=== PATIENT | male | born 1940 | race Caucasian/White ===

== ENCOUNTER 2023-03-28 09:15 | Outpatient (CLI) | payer MEDICARE, OTHER ==
[2023-03-28 12:10] LABS: BASOPHILS % (AUTO) 0.4 %; EOSINOPHILS % (AUTO) 0.7 %; HCT - HEMATOCRIT 43.1 % (42.0-52.0); HGB - HEMOGLOBIN 14.1 g/dL (14.0-18.0); LYMPHOCYTES # (AUTO) 0.8 10^3/uL (1.5-3.5); LYMPHOCYTES % (AUTO) 14.5 %; MEAN CORPUSCULAR HEMOGLOBIN 30.9 pg (27.0-31.0); MEAN CORPUSCULAR HGB CONC 32.7 g/dL (32.0-36.0); MEAN CORPUSCULAR VOLUME 94.3 fL (80.0-94.0); MEAN PLATELET VOLUME 12.5 fL (7.4-11.4); MONOCYTES # (AUTO) 0.5 10^3/uL (0.0-1.0); MONOCYTES % (AUTO) 9.9 %; NEUTROPHILS # (AUTO) 4.1 10^3/uL (1.5-6.6); NEUTROPHILS % (AUTO) 74.3 %; PLT - PLATELET COUNT 174 10^3/uL (130-450); RED BLOOD COUNT 4.57 10^6/uL (4.70-6.10); RED CELL DISTRIBUTION WIDTH 13.2 % (12.0-15.0); WHITE BLOOD COUNT 5.5 x10^3/uL (4.8-10.8)
[2023-03-28 12:27] LABS: ALBUMIN 4.6 g/dL (3.2-5.5); ALBUMIN/GLOBULIN RATIO 1.8 (1.0-2.2); BILIRUBIN,TOTAL 0.8 mg/dL (0.2-1.0); CALCIUM 9.2 mg/dL (8.5-10.3); CREATININE 0.9 mg/dL (0.6-1.2); POTASSIUM 3.7 mmol/L (3.5-5.0); TOTAL PROTEIN 7.2 g/dL (6.7-8.2)
== END 2023-03-28 09:30 | disposition home or self-care (01) ==
LOC: LAB.N 09:15
PROVIDERS: ATTEND Nurse Practitioner
DX: R10.9 Unspecified abdominal pain (principal); R60.0 Localized edema
CPT/HCPCS: 36415; 80053; 82150; 83690; 85025; 85379

== ENCOUNTER 2023-03-30 12:17 | Emergency (ER) | payer MEDICARE, OTHER ==
[2023-03-30 12:52] LABS: BASOPHILS % (AUTO) 0.4 %; EOSINOPHILS % (AUTO) 0.3 %; HCT - HEMATOCRIT 40.7 % (42.0-52.0); HGB - HEMOGLOBIN 13.4 g/dL (14.0-18.0); LYMPHOCYTES # (AUTO) 0.9 10^3/uL (1.5-3.5); LYMPHOCYTES % (AUTO) 12.8 %; MEAN CORPUSCULAR HEMOGLOBIN 31.2 pg (27.0-31.0); MEAN CORPUSCULAR HGB CONC 32.9 g/dL (32.0-36.0); MEAN CORPUSCULAR VOLUME 94.7 fL (80.0-94.0); MEAN PLATELET VOLUME 12.2 fL (7.4-11.4); MONOCYTES # (AUTO) 0.6 10^3/uL (0.0-1.0); MONOCYTES % (AUTO) 8.7 %; NEUTROPHILS # (AUTO) 5.3 10^3/uL (1.5-6.6); NEUTROPHILS % (AUTO) 77.5 %; PLT - PLATELET COUNT 163 10^3/uL (130-450); RED CELL DISTRIBUTION WIDTH 13.5 % (12.0-15.0); WHITE BLOOD COUNT 6.8 x10^3/uL (4.8-10.8)
--- NOTE | 2023-03-30 12:57 | ED Physician Documentation ---
History of Present Illness - Stated complaint Stated Complaint: ABD/LEG PX - Chief complaint Chief Complaint: Abd Pain - History obtained from History obtained from: Patient, Family - Additonal information Additional information: The patient comes to the emergency department with chief complaint of left lower quadrant pain has been going on for the last nearly 1 week. He states that it started out as left lower quadrant pain and left flank pain that radiated down his left leg, but now, just seems to be a burning sensation in his left pelvis. He states it comes in waves and although it dies down, it does not completely go away. The patient has been on Cipro and Flagyl for the last 3 days after being seen in urgent care clinic and been started on treatment presumptively for diverticulitis without imaging, but states that the antibiotics do not seem to take the pain down. He does note that he was feeling generally somewhat ill when he went to the urgent care clinic and that he just felt "weak and limp the". However, he states that part has gotten a lot better and he feels much stronger and mentally clearer since being on antibiotics. The patient states he has a history of multiple episodes of diverticulitis in the past. He has had a CT about 5 years ago for this but has been treated twice this year from the urgent care clinic prior to this episode and both times, they have just given him antibiotics without imaging. He is not known to have any history of anything else, such as kidney stones. The patient denies fevers, chills, nausea, vomiting, or scrotal/testicular pain. He states when he washed this morning, both sides of his Scrotum appeared mildly reddish, but was not tender, and his testicles did not feel enlarged. PD PAST MEDICAL HISTORY - Present Medications Home Medications: Ambulatory Orders Medication Instructions Recorded Confirmed Ciprofloxacin HCl 500 mg PO BID 03/30/23 03/30/23 Lovastatin 20 mg PO DAILY 03/30/23 03/30/23 metroNIDAZOLE [Flagyl] 500 mg PO BID 03/30/23 03/30/23 - Allergies Allergies/Adverse Reactions: Allergies Allergy/AdvReac Type Severity Reaction Status Date / Time No Known Drug Allergies Allergy Verified 03/30/23 12:29 PD ED PE NORMAL - Vitals Vital signs reviewed: Yes - General General: Alert and oriented X 3, No acute distress, Well developed/nourished - HEENT HEENT: Atraumatic, PERRL, EOMI, Moist mucous membranes - Neck Neck: Supple, no meningeal sign - Cardiac Cardiac: RRR, No murmur - Respiratory Respiratory: No respiratory distress, Clear bilaterally - Abdomen Abdomen: Soft, Non distended, Other (Minimal tenderness, left lower quadrant, inferolaterally.) - Derm Derm: Normal color, Warm and dry, No rash - Extremities Extremities: No deformity, No edema - Neuro Neuro: Alert and oriented X 3 - Psych Psych: Normal mood, Normal affect Results - Vitals Vitals: Oxygen O2 Source Room air - Labs Labs: Laboratory Tests 03/30/23 03/30/23 03/30/23 12:40 12:40 12:55 WBC 6.8 RBC 4.30 L Hgb 13.4 L Hct 40.7 L MCV 94.7 H MCH 31.2 H MCHC 32.9 RDW 13.5 Plt Count 163 MPV 12.2 H Neut # (Auto) 5.3 Lymph # (Auto) 0.9 L Pierce # (Auto) 0.6 Eos # (Auto) 0.0 Baso # (Auto) 0.0 Absolute Nucleated RBC 0.00 Nucleated RBC % 0.0 Sodium 139 Potassium 4.1 Chloride 99 L Carbon Dioxide 26 Anion Gap 14.0 H BUN 9 Creatinine 0.9 Estimated GFR (MDRD) 81 L Glucose 120 H Calcium 9.1 Total Bilirubin 0.5 AST 47 H ALT 30 Alkaline Phosphatase 85 Total Protein 6.8 Albumin 4.3 Globulin 2.5 Albumin/Globulin Ratio 1.7 Lipase 32 Urine Color LT. YELLOW Urine Clarity CLEAR Urine pH 6.5 Ur Specific Fleming <=1.005 Urine Protein NEGATIVE Urine Glucose (UA) NEGATIVE Urine Ketones NEGATIVE Urine Occult Blood TRACE-INTA Urine Nitrite NEGATIVE Urine Bilirubin NEGATIVE Urine Urobilinogen 0.2 (NORMAL) Ur Leukocyte Esterase NEGATIVE Ur Microscopic Review NOT INDICATED Urine Culture Comments NOT INDICATED - Rads (name of study) CT abdomen and pelvis Relevant Findings:: Final report received, See rad report (Large amount of stool in rectum. Distended bladder, likely secondary to enlarged prostate. No diverticulitis.) PD Medical Decision Making - ED course Complexity details: reviewed results, re-evaluated patient, considered differential, d/w patient, d/w family ED course: The patient was worked up with laboratory studies, followed by a CT scan of the abdomen and pelvis, All of which were reviewed by me. The labs were unremarkable. The CT showed constipation and some bladder outlet obstruction that is likely secondary to the enlarged prostate. I discussed the findings with the patient who stated that he feels mostly satisfied after urinating and does not want a catheter at this point. I discussed with the patient that some stool softeners would likely be helpful with his constipation and perhaps would relieve some of the bladder outlet obstruction. As far as diverticulitis I do not know if he ever had it to begin with but a mere 3 days into treatment, there is no trace whatsoever of any inflammation of diverticuli. I have encouraged the patient to return here as opposed to the walk-in clinic, and should he have further abdominal pain. I have also advised him strongly to follow-up with urology to discuss what should be done about his prostate. Departure - Departure Disposition: 01 Home, Self Care Clinical Impression: Urinary obstruction, Prostate cancer Abdominal pain Qualifiers: Abdominal location: left lower quadrant Qualified Code(s): R10.32 - Left lower quadrant pain Constipation Qualifiers: Constipation type: unspecified constipation type Qualified Code(s): K59.00 - Constipation, unspecified Condition: Stable Instructions: ED Constipation, ED Abdominal Pain Unkn Cause Male Comments: Your CT scan does not show diverticulitis. Since you are already fci through the antibiotic course, you may as well finish it at this point. Its not exactly clear what has caused her left lower abdominal pain, but you do have quite a bit of stool sitting in your rectum and also, you do have some bladder obstruction from your prostate cancer that is causing somewhat of a backup of urine. You seem to be urinating fairly large amounts, but you are probably not emptying your bladder completely, as evidenced by the amount of urine you have left over after urinating by ultrasound scan. You will need to call your urologist or call your primary doctor's office and get rereferred to urology to discuss options for better bladder drainage. This could potentially include a surgery to reduce the size of your prostate, or could possibly involve having a catheter in your bladder chronically. The urologist would be able to discuss the feasibility and pros and cons of each of these, or of any other potential options. Please call your urology office and your primary doctor's office soon as possible. As far as your constipation, please continue to eat a high-fiber diet including lots of fresh fruits and vegetables and whole grains. You may also use an [id number] enema and [id number] stool softeners like Colace to try to help clear things out and see if this improves your low abdominal discomfort. Discharge Date/Time: 03/30/23 16:14
[2023-03-30] MEDS ORDERED: iohexoL-300 100 ML VIAL ONE (13:03)
[2023-03-30 13:34] LABS: ALBUMIN 4.3 g/dL (3.2-5.5); ALBUMIN/GLOBULIN RATIO 1.7 (1.0-2.2); BILIRUBIN,TOTAL 0.5 mg/dL (0.2-1.0); CREATININE 0.9 mg/dL (0.6-1.2); TOTAL PROTEIN 6.8 g/dL (6.7-8.2)
[2023-03-30 14:05] LABS: BILIRUBIN,URINE NEGATIVE (NEGATIVE); GLUCOSE, URINE (UA) NEGATIVE (NEGATIVE); KETONES,URINE (UA) NEGATIVE (NEGATIVE); LEUKOCYTE ESTERASE, URINE NEGATIVE (NEGATIVE); NITRITE,URINE NEGATIVE (NEGATIVE); OCCULT BLOOD,URINE TRACE-INTA (NEGATIVE); PH,URINE 6.5 PH (5.0-7.5); PROTEIN,URINE NEGATIVE (NEGATIVE); UROBILINOGEN,URINE 0.2 (NORMAL) E.U./dL (NORMAL)
[2023-03-30 14:06] LABS: CLARITY,URINE CLEAR (CLEAR)
[2023-03-30] MEDS ORDERED: iohexoL-300 100 ML VIAL IVP ONE (14:14)
[2023-03-30 14:22] LABS: POTASSIUM 4.1 mmol/L (3.5-5.0)
[2023-03-30 14:49] LABS: CALCIUM 9.1 mg/dL (8.5-10.3)
--- NOTE | 2023-03-30 14:50 | CT Report ---
PROCEDURE: ABDOMEN/PELVIS W INDICATIONS: LLQ pain, h/o diverticulitis CONTRAST: 100ml Omnipaque 300 TECHNIQUE: After the administration of IV contrast, 5 mm thick sections acquired from the diaphragms to the symp hysis. 5 mm thick coronal and sagittal reformats were acquired. For radiation dose reduction, the f ollowing was used: automated exposure control, adjustment of mA and/or kV according to patient size. COMPARISON: None. FINDINGS: Image quality: Excellent. Lung bases and heart: Basilar atelectasis. Heart size is normal. There is moderate coronary calcific ation. Liver: No solid mass. Gallbladder and biliary tree: Spleen: No splenomegaly. Pancreas: No pancreatic ductal dilation. Adrenals: No adrenal nodule. Kidneys and ureters: Trace renal pelviectasis bilaterally. Kidneys are normal in size and symmetrical enhancement. No renal stones. No renal cystic lesion which requires follow up. No solid mass. Bowel and peritoneum: No bowel distension. No pathologic free fluid. There is a large amount of stool in colon. Mild diverticulosis. No acute diverticulitis. Lymph nodes: No central or retroperitoneal adenopathy. Vessels: No infrarenal aortic aneurysm. PELVIS Reproductive organs: Prostate is enlarged. Bladder: No bladder wall thickening. Bladder is distended. Pelvic lymph nodes: No pelvic adenopathy by size criteria. Bones: No aggressive osseous abnormality. Other: There is a fat-containing left inguinal hernia. Small fat-containing umbilical hernia. IMPRESSION: 1. No acute inflammatory process in abdomen or pelvis. 2. Mild diverticulosis. No diverticulitis. 3. A large amount of stool in colon. 4. Enlarged prostate. 5. Distended urinary bladder. There is bilateral renal pelviectasis. The findings may be secondary to bladder outlet obstruction. Reviewed by: Ena Ridley MD on 03/30/2023 2:48 PM PDT Approved by: Ena Ridley MD on 03/30/2023 2:48 PM PDT Station ID: [id number]
[2023-03-30 14:59] VITALS: BP 129/74
== END 2023-03-30 16:14 | disposition home or self-care (01) ==
LOC: ED 12:17
DX: N13.9 Obstructive and reflux uropathy, unspecified (principal); C61 Malignant neoplasm of prostate; K59.00 Constipation, unspecified; R10.32 Left lower quadrant pain
CPT/HCPCS: 36415; 51798; 74177; 80053; 81003; 83690; 85025; 99283; 99284; Q9967; 81001; 87086

== ENCOUNTER 2023-10-13 13:10 | Outpatient (CLI) | payer MEDICARE | END 2023-10-13 13:11 | disposition home or self-care (01) | LOC: LAB.N 13:10 | PROVIDERS: ATTEND Urology | DX: Z85.46 Personal history of malignant neoplasm of prostate (principal) | CPT/HCPCS: 36415; 84153 ==

== ENCOUNTER 2023-10-19 08:00 | Outpatient (CLI) | payer MEDICARE ==
[2023-10-19 10:59] LABS: BILIRUBIN,URINE NEGATIVE (NEGATIVE); GLUCOSE, URINE (UA) NEGATIVE (NEGATIVE); KETONES,URINE (UA) NEGATIVE (NEGATIVE); LEUKOCYTE ESTERASE, URINE NEGATIVE (NEGATIVE); NITRITE,URINE NEGATIVE (NEGATIVE); OCCULT BLOOD,URINE TRACE-INTA (NEGATIVE); PROTEIN,URINE NEGATIVE (NEGATIVE); UROBILINOGEN,URINE 0.2 (NORMAL) E.U./dL (NORMAL)
[2023-10-19 11:00] LABS: CLARITY,URINE CLEAR (CLEAR)
== END 2023-10-19 23:59 | disposition home or self-care (01) ==
LOC: LAB 08:00
PROVIDERS: ATTEND Urology
DX: N40.1 Benign prostatic hyperplasia with lower urinary tract symptoms (principal); N13.8 Other obstructive and reflux uropathy
CPT/HCPCS: 81001; 81003; 87086